=== PATIENT | female | born 1995 | race Caucasian/White ===

== ENCOUNTER 2021-10-04 17:31 | Emergency (ER) | payer OTHER ==
[2021-10-04 18:32] LABS: BASOPHILS % (AUTO) 0.2 %; EOSINOPHILS % (AUTO) 0.1 %; HCT - HEMATOCRIT 40.6 % (37.0-47.0); HGB - HEMOGLOBIN 13.5 g/dL (12.0-16.0); LYMPHOCYTES # (AUTO) 1.1 10^3/uL (1.5-3.5); LYMPHOCYTES % (AUTO) 10.4 %; MEAN CORPUSCULAR HEMOGLOBIN 31.4 pg (27.0-31.0); MEAN CORPUSCULAR HGB CONC 33.3 g/dL (32.0-36.0); MEAN CORPUSCULAR VOLUME 94.4 fL (81.0-99.0); MEAN PLATELET VOLUME 10.6 fL (7.9-10.8); MONOCYTES # (AUTO) 0.2 10^3/uL (0.0-1.0); MONOCYTES % (AUTO) 1.5 %; NEUTROPHILS # (AUTO) 8.9 10^3/uL (1.5-6.6); NEUTROPHILS % (AUTO) 87.4 %; PLT - PLATELET COUNT 260 10^3/uL (130-450); RED CELL DISTRIBUTION WIDTH 12.6 % (12.0-15.0); WHITE BLOOD COUNT 10.2 x10^3/uL (4.8-10.8)
[2021-10-04 18:45] LABS: ALBUMIN 4.5 g/dL (3.2-5.5); ALBUMIN/GLOBULIN RATIO 1.3 (1.0-2.2); BILIRUBIN,TOTAL 0.8 mg/dL (0.2-1.0); CALCIUM 9.5 mg/dL (8.5-10.3); CREATININE 0.9 mg/dL (0.4-1.0); POTASSIUM 3.6 mmol/L (3.5-5.0); TOTAL PROTEIN 7.9 g/dL (6.7-8.2)
[2021-10-04] MEDS ORDERED: KETOROLAC 30 MG/ML VIAL IVP STA (19:30)
[2021-10-04] MEDS ORDERED: SODIUM CHLORIDE 0.9% 1,000 ML IV STA (19:30)
[2021-10-04] MEDS ORDERED: ONDANSETRON 4 MG/2 ML VIAL IVP STA (19:30)
--- NOTE | 2021-10-04 19:31 | ED Physician Documentation ---
PD HPI ABD PAIN - Stated complaint Stated Complaint: VOMITTING - Chief complaint Chief Complaint: Abd Pain - History obtained from History obtained from: Patient - Additional information Additional information: She became progressively ill around noon today with stomach pain which is generalized and vomiting. No recent travel, no diarrhea, no fevers. No sick contacts or suspect foods. No history of abdominal surgeries. Review of Systems Ten Systems: 10 systems reviewed and negative Constitutional: reports: Reviewed and negative Eyes: reports: Reviewed and negative Ears: reports: Reviewed and negative Cardiac: reports: Reviewed and negative Respiratory: reports: Reviewed and negative PD PAST MEDICAL HISTORY - Allergies Allergies/Adverse Reactions: Allergies Allergy/AdvReac Type Severity Reaction Status Date / Time No Known Drug Allergies Allergy Verified 10/04/21 18:08 PD ED PE NORMAL - Vitals Vital signs reviewed: Yes - General General: Alert and oriented X 3, No acute distress - HEENT HEENT: PERRL, EOMI - Neck Neck: Supple, no meningeal sign, No bony TTP - Cardiac Cardiac: RRR, No murmur - Respiratory Respiratory: No respiratory distress, Clear bilaterally - Abdomen Abdomen: Normal bowel sounds, Soft, Other (She is tender to the low and right side of the abdomen most focally in the right lower quadrant without guarding or rebound.) - Back Back: No CVA TTP, No spinal TTP - Derm Derm: Normal color, Warm and dry - Extremities Extremities: No edema, No calf tenderness / cord - Neuro Neuro: Alert and oriented X 3, Normal speech Results - Vitals Vitals: Vital Signs - 24 hr 10/04/21 10/04/21 10/04/21 18:04 19:44 21:30 Temperature 37.1 C Heart Rate 75 71 85 Respiratory 20 19 19 Rate Blood Pressure 149/95 H 117/79 120/73 O2 Saturation 99 98 98 Oxygen O2 Source Room air - Labs Labs: Laboratory Tests 10/04/21 10/04/21 10/04/21 18:00 18:29 18:29 WBC 10.2 RBC 4.30 Hgb 13.5 Hct 40.6 MCV 94.4 MCH 31.4 H MCHC 33.3 RDW 12.6 Plt Count 260 MPV 10.6 Neut # (Auto) 8.9 H Lymph # (Auto) 1.1 L [place] # (Auto) 0.2 Eos # (Auto) 0.0 Baso # (Auto) 0.0 Absolute Nucleated RBC 0.00 Nucleated RBC % 0.0 Sodium 139 Potassium 3.6 Chloride 100 L Carbon Dioxide 27 Anion Gap 12.0 BUN 15 Creatinine 0.9 Estimated GFR (MDRD) 77 L Glucose 112 H Calcium 9.5 Total Bilirubin 0.8 AST 16 ALT 13 Alkaline Phosphatase 72 Total Protein 7.9 Albumin 4.5 Globulin 3.4 Albumin/Globulin Ratio 1.3 Lipase 26 Urine Color YELLOW Urine Clarity HAZY Urine pH 7.5 Ur Specific [place] 1.020 Urine Protein NEGATIVE Urine Glucose (UA) NEGATIVE Urine Ketones >=80 H Urine Occult Blood NEGATIVE Urine Nitrite NEGATIVE Urine Bilirubin NEGATIVE Urine Urobilinogen 0.2 (NORMAL) Ur Leukocyte Esterase NEGATIVE Urine RBC None Seen Urine WBC 4-5 Ur Squamous Epith Cells RARE Squamous Amorphous Sediment Rare Urine Bacteria Rare Urine Mucus Few Strands Ur Microscopic Review INDICATED Urine Culture Comments NOT INDICATED PD MEDICAL DECISION MAKING - ED course ED course: 26-year-old woman presents with abdominal pain associated with vomiting. No diarrhea to suggest gastroenteritis and she is tender in the low abdomen. Initial thought was for appendicitis. She has a borderline white count. Negative test. After initial round of pain and nausea medicines she was still quite miserable and writhing in pain, appears more comfortable after a second dose of pain medications. Signed out to overnight ED physician pending CT read. My wet read of this shows a large left ovarian cyst. Do not see any evidence of appendicitis but again the formal read is pending.
[2021-10-04 20:30] LABS: BILIRUBIN,URINE NEGATIVE (NEGATIVE); GLUCOSE, URINE (UA) NEGATIVE (NEGATIVE); KETONES,URINE (UA) >=80 mg/dL (NEGATIVE); LEUKOCYTE ESTERASE, URINE NEGATIVE (NEGATIVE); NITRITE,URINE NEGATIVE (NEGATIVE); OCCULT BLOOD,URINE NEGATIVE (NEGATIVE); PH,URINE 7.5 PH (5.0-7.5); PROTEIN,URINE NEGATIVE (NEGATIVE); UROBILINOGEN,URINE 0.2 (NORMAL) E.U./dL (NORMAL)
[2021-10-04 20:41] LABS: CLARITY,URINE HAZY (CLEAR)
[2021-10-04 20:42] LABS: AMORPHOUS SEDIMENT,UR Rare /LPF; BACTERIA,URINE Rare /HPF (None Seen); MUCUS,URINE Few Strands; RBC,URINE None Seen /HPF (0-5); SQUAMOUS EPITHELIAL CELL,UR RARE Squamous (<= Few)
[2021-10-04] MEDS ORDERED: IOVERSOL 320 100 ML VIAL IVP ONE ×2 (20:47→21:16)
[2021-10-04] MEDS ORDERED: METOCLOPRAMIDE 10 MG/2 ML VIAL IVP STA (21:23)
[2021-10-04] MEDS ORDERED: HYDROmorphone 1 MG/ML CARPUJECT IVP STA (21:23)
--- NOTE | 2021-10-04 22:10 | CT Report ---
PROCEDURE: Abdomen/Pelvis W INDICATIONS: IV only, RLQ pain CONTRAST: IV CONTRAST: Optiray 320 ml: 100 PO CONTRAST: *NO PO CONTRAST TECHNIQUE: After the administration of evaluation of the descending thoracic aorta is degraded by artifact and c annot be evaluated... contrast, 5 mm thick sections acquired from the diaphragms to the symphysis. 5 mm thick coronal and sagittal reformats were acquired. For radiation dose reduction, the following was used: automated exposure control, adjustment of mA and/or kV according to patient size. COMPARISON: None. FINDINGS: Image quality: Excellent. ABDOMEN: Lung bases: Lung bases are clear. Heart size is normal. Solid organs: Liver and spleen are normal in size and enhancement. Gallbladder is within normal morales its Biliary system is non dilated. Pancreas enhances normally. No adrenal nodules. Kidneys demons trate normal size and enhancement, without hydronephrosis. Peritoneum and bowel: Bowel loops demonstrate normal wall thickness and caliber. No free air. Small free fluid in the cul-de-sac of the pelvis. Appendix is normal. Nodes and vessels: No retroperitoneal or mesenteric adenopathy by size criteria. Aorta and inferior vena cava are normal in size. Miscellaneous: No ventral hernias. PELVIS: Genitourinary: Bladder wall thickness is normal. 4.5 cm left adnexal region cyst. Intrauterine alexis ce centrally positioned within the uterus. Miscellaneous: No inguinal hernias or adenopathy. Bones: No suspicious bony lesions. No vertebral body compression fractures. IMPRESSION: 1. Appendix is normal. 2. Small amount of free fluid in the cul-de-sac the pelvis which is within physiologic limits. 3. No dilated loops 4. 4.5 cm left adnexal region cyst. There is clinical concern for ovarian pathology, pelvic ultrasoun d should be considered for further evaluation. Reviewed by: Estella Moore MD, PhD on 10/04/2021 10:09 PM PST Approved by: Estella Moore MD, PhD on 10/04/2021 10:09 PM PST Station ID: [id number]
[2021-10-04 22:56] LABS: HCG UR QUAL NEGATIVE
--- NOTE | 2021-10-04 23:31 | ED Physician Documentation ---
ED Addendum - Addendum Addendum: 10/04/21 23:28 Patient endorsed me by Dr. Chapin pending CT a/p read. CT showed no ap pendicitis. There is a L ovarian cyst. Follow up u/s of the pelvis showed good flow to both ovaries and some BL adnexal fluid. Possible cyst rupture. Patient continues to have improvement so I will discharge home to f/u with agricultural equipment salesperson. return precautions given. Disposition home Condition good Impression 1. abdominal pain 2. ovarian cyst
[2021-10-04 23:55] VITALS: BP 107/86
--- NOTE | 2021-10-05 00:07 | Ultrasound Report ---
PROCEDURE: Pelvic Complete INDICATIONS: RLQ pain, sudden onset today TECHNIQUE: Real-time transabdominal scanning was performed of the pelvic organs, with image documentation. COMPARISON: None FINDINGS: Limited examination secondary to body habitus. Uterus: Uterus is normal in size at 7.2 x 4.4 x 4.6 cm. Endometrium measures 4.5 mm in combined thi ckness. IUD is grossly unremarkable Ovaries: Right ovary is grossly unremarkable with intact arterial and venous flow. 40 mm diameter in termediate echogenicity focus within the left ovary. Intact arterial and venous flow within the left ovary. Other: Small amount of free fluid within the pelvis, within physiological limits in a demonstrating f emale. IMPRESSION: 1. IUD is in expected location. 2. Probable hemorrhagic cyst within the left ovary. 3. No evidence of torsion at the time of the examination. Reviewed by: Jb Lopez MD on 10/05/2021 12:06 AM PST Approved by: Jb Lopez MD on 10/05/2021 12:06 AM PST Station ID: [id number]
== END 2021-10-05 00:30 | disposition home or self-care (01) ==
LOC: ED 17:31
DX: N83.202 Unspecified ovarian cyst, left side (principal); R10.9 Unspecified abdominal pain
CPT/HCPCS: 36415; 74177; 76856; 80053; 81001; 81025; 83690; 85025; 96374; 96375; 99283; 99285; J1170; J2765; Q9967; 81003; 87086

== ENCOUNTER 2021-10-19 19:07 | Emergency (ER) | payer OTHER ==
--- NOTE | 2021-10-19 19:35 | ED Physician Documentation ---
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 She was seen here 2 weeks ago, work-up demonstrated a left ovarian cyst but I suspect that is not related since she has upper abdominal pain and no pelvic pain. She was given medications which were quite helpful in cluding Dilaudid Toradol Reglan and Zofran. She had a CT and ultrasound on that date. She is never seen a specialist nor had an upper endoscopy. She states this happens multiple times a year. No associated diarrhea or change in bowel movements. No surgical history. She says she does not use marijuana. Review of Systems Ten Systems: 10 systems reviewed and negative Constitutional: reports: Sweats GI: reports: Abdominal Pain, Nausea, Vomiting. 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 HEENT: None Psych: None Musculoskeletal: None Derm: None - Past Surgical History Past Surgical History: No - Present Medications Home Medications: Ambulatory Orders Medication Instructions Recorded Confirmed Ondansetron Odt [Zofran] 4 mg TL Q6H PRN #10 tablet 10/19/21 - Allergies Allergies/Adverse Reactions: Allergies Allergy/AdvReac Type Severity Reaction Status Date / Time No Known Drug Allergies Allergy Verified 10/19/21 19:14 - Social History Does the pt smoke?: No Smoking Status: Never smoker Does the pt drink ETOH?: No Does the pt have substance abuse?: No - Immunizations Immunizations are current?: Yes PD ED PE NORMAL - Vitals Vital signs reviewed: Yes - General General: Alert and oriented X 3, Other (She appears uncomfortable without active retching) - Cardiac Cardiac: RRR, No murmur - Respiratory Respiratory: No respiratory distress, Clear bilaterally - Abdomen Abdomen: Normal bowel sounds, Soft, Other (Mild upper abdominal tenderness without surgical signs, no pelvic tenderness.) - Derm Derm: Normal color, Warm and dry - Extremities Extremities: Other (Well-healed scars on the anterior left forearm consistent with self cutting, none recent.) - Neuro Neuro: Alert and oriented X 3, Normal speech Results - Vitals Vitals: Vital Signs - 24 hr 10/19/21 10/19/21 10/19/21 19:14 19:20 21:16 Temperature 36.9 C Heart Rate 90 88 85 Respiratory 18 16 16 Rate Blood Pressure 133/86 H 143/94 H 138/75 H O2 Saturation 100 98 98 Oxygen O2 Source Room air - Labs Labs: Laboratory Tests 10/19/21 10/19/21 10/19/21 19:36 19:36 20:23 WBC 13.8 H RBC 4.35 Hgb 13.9 Hct 40.0 MCV 92.0 MCH 32.0 H MCHC 34.8 RDW 12.4 Plt Count 291 MPV 10.7 Neut # (Auto) 12.2 H Lymph # (Auto) 1.2 L [place] # (Auto) 0.3 Eos # (Auto) 0.0 Baso # (Auto) 0.0 Absolute Nucleated RBC 0.00 Nucleated RBC % 0.0 Sodium 139 Potassium 3.6 Chloride 100 L Carbon Dioxide 25 Anion Gap 14.0 H BUN 13 Creatinine 0.9 Estimated GFR (MDRD) 77 L Glucose 125 H Calcium 10.0 Total Bilirubin 1.1 H AST 15 ALT 13 Alkaline Phosphatase 74 Total Protein 8.3 H Albumin 4.8 Globulin 3.5 Albumin/Globulin Ratio 1.4 Lipase 22 Urine Color YELLOW Urine Clarity CLEAR Urine pH >=9.0 H Ur Specific [place] 1.015 Urine Protein 30 H Urine Glucose (UA) NEGATIVE Urine Ketones >=80 H Urine Occult Blood NEGATIVE Urine Nitrite NEGATIVE Urine Bilirubin NEGATIVE Urine Urobilinogen 0.2 (NORMAL) Ur Leukocyte Esterase NEGATIVE Urine RBC None Seen Urine WBC 0-3 Ur Squamous Epith Cells RARE Squamous Amorphous Sediment Rare Urine Bacteria Few Urine Mucus Few Strands Ur Microscopic Review INDICATED Urine Culture Comments NOT INDICATED Urine HCG, Qual NEGATIVE Urine Opiates Screen NEGATIVE Ur Oxycodone Screen NEGATIVE Urine Methadone Screen NEGATIVE Ur Propoxyphene Screen NEGATIVE Ur Barbiturates Screen NEGATIVE Ur Tricyclics Screen NEGATIVE Ur Phencyclidine Scrn NEGATIVE Ur Amphetamine Screen NEGATIVE U Methamphetamines Scrn NEGATIVE U Benzodiazepines Scrn NEGATIVE Urine Cocaine Screen NEGATIVE U Cannabinoids Screen NEGATIVE PD MEDICAL DECISION MAKING - ED course ED course: 26-year-old woman with episodes of recurrent vomiting of unclear pathology. Pain was much better after Toradol and Reglan but still having some nausea. This was followed with IV fluids and 2.5 mg of droperidol after which she was quite sedated. Departure - Departure Clinical Impression: Recurrent vomiting Condition: Good Record reviewed to determine appropriate education?: Yes Instructions: ED Nausea Vomiting Prescriptions: Ondansetron Odt [Zofran] 4 mg TL Q6H PRN #10 tablet PRN Reason: Nausea / Vomiting Comments: [place] for [place]enterology, with consideration for EGD. Still need to follow-up with AUTOMATIC EMBROIDERY MACHINE TENDER for repeat ultrasonography in a few weeks for recheck of the ovarian cyst seen on prior visit.
[2021-10-19] MEDS ORDERED: METOCLOPRAMIDE 10 MG/2 ML VIAL IVP STA (19:36)
[2021-10-19] MEDS ORDERED: KETOROLAC 30 MG/ML VIAL IVP STA (19:36)
[2021-10-19 19:38] LABS: BASOPHILS % (AUTO) 0.2 %; EOSINOPHILS % (AUTO) 0.1 %; HGB - HEMOGLOBIN 13.9 g/dL (12.0-16.0); LYMPHOCYTES # (AUTO) 1.2 10^3/uL (1.5-3.5); LYMPHOCYTES % (AUTO) 8.6 %; MEAN CORPUSCULAR HGB CONC 34.8 g/dL (32.0-36.0); MEAN PLATELET VOLUME 10.7 fL (7.9-10.8); MONOCYTES # (AUTO) 0.3 10^3/uL (0.0-1.0); MONOCYTES % (AUTO) 2.3 %; NEUTROPHILS # (AUTO) 12.2 10^3/uL (1.5-6.6); NEUTROPHILS % (AUTO) 88.5 %; PLT - PLATELET COUNT 291 10^3/uL (130-450); RED BLOOD COUNT 4.35 10^6/uL (4.20-5.40); RED CELL DISTRIBUTION WIDTH 12.4 % (12.0-15.0); WHITE BLOOD COUNT 13.8 x10^3/uL (4.8-10.8)
[2021-10-19 19:57] LABS: ALBUMIN 4.8 g/dL (3.2-5.5); ALBUMIN/GLOBULIN RATIO 1.4 (1.0-2.2); BILIRUBIN,TOTAL 1.1 mg/dL (0.2-1.0); CREATININE 0.9 mg/dL (0.4-1.0); POTASSIUM 3.6 mmol/L (3.5-5.0); TOTAL PROTEIN 8.3 g/dL (6.7-8.2)
[2021-10-19 20:31] LABS: BILIRUBIN,URINE NEGATIVE (NEGATIVE); GLUCOSE, URINE (UA) NEGATIVE (NEGATIVE); KETONES,URINE (UA) >=80 mg/dL (NEGATIVE); LEUKOCYTE ESTERASE, URINE NEGATIVE (NEGATIVE); MUDS CUTOFF CONCENTRATIONS CUTOFF CONC BELOW:; NITRITE,URINE NEGATIVE (NEGATIVE); OCCULT BLOOD,URINE NEGATIVE (NEGATIVE); PH,URINE >=9.0 PH (5.0-7.5); PROTEIN,URINE 30 mg/dL (NEGATIVE); UROBILINOGEN,URINE 0.2 (NORMAL) E.U./dL (NORMAL)
[2021-10-19 20:35] LABS: CLARITY,URINE CLEAR (CLEAR); HCG UR QUAL NEGATIVE
[2021-10-19 20:41] LABS: AMORPHOUS SEDIMENT,UR Rare /LPF; BACTERIA,URINE Few /HPF (None Seen); MUCUS,URINE Few Strands; RBC,URINE None Seen /HPF (0-5); SQUAMOUS EPITHELIAL CELL,UR RARE Squamous (<= Few); WBC,URINE 0-3 /HPF (0-5)
[2021-10-19 20:42] LABS: AMPHETAMINE SCREEN,URINE NEGATIVE (NEGATIVE); BARBITURATE SCREEN,UR NEGATIVE (NEGATIVE); BENZODIAZEPINES SCREEN, URINE NEGATIVE (NEGATIVE); COCAINE SCREEN URINE NEGATIVE (NEGATIVE); METHADONE SCREEN, URINE NEGATIVE (NEGATIVE); METHAMPHETAMINES SCREEN, URINE NEGATIVE (NEGATIVE); OPIATE SCREEN, URINE NEGATIVE (NEGATIVE); OXYCODONE SCREEN, URINE NEGATIVE (NEGATIVE); PROPOXYPHENE SCREEN, URINE NEGATIVE (NEGATIVE); THC CANNABINOID SCREEN, URINE NEGATIVE (NEGATIVE); TRICYCLIC ANTIDEPRESSANT,URINE NEGATIVE (NEGATIVE)
[2021-10-19] MEDS ORDERED: SODIUM CHLORIDE 0.9% 1,000 ML IV STA (20:44)
[2021-10-19] MEDS ORDERED: DROPERIDOL 5 MG/2 ML VIAL IVP STA (20:44)
[2021-10-19 22:48] VITALS: BP 99/56
== END 2021-10-19 22:58 | disposition home or self-care (01) ==
LOC: ED 19:07
DX: R11.2 Nausea with vomiting, unspecified (principal); R10.10 Upper abdominal pain, unspecified
CPT/HCPCS: 36415; 80053; 80306; 81001; 81025; 83690; 85025; 96374; 96375; 99283; J2765; 81003; 87086

== ENCOUNTER 2021-11-14 14:27 | Emergency (ER) | payer OTHER ==
[2021-11-14 15:01] LABS: BASOPHILS % (AUTO) 0.3 %; EOSINOPHILS % (AUTO) 0.2 %; HCT - HEMATOCRIT 42.7 % (37.0-47.0); HGB - HEMOGLOBIN 14.9 g/dL (12.0-16.0); LYMPHOCYTES # (AUTO) 1.6 10^3/uL (1.5-3.5); LYMPHOCYTES % (AUTO) 12.4 %; MEAN CORPUSCULAR HEMOGLOBIN 32.3 pg (27.0-31.0); MEAN CORPUSCULAR HGB CONC 34.9 g/dL (32.0-36.0); MEAN CORPUSCULAR VOLUME 92.6 fL (81.0-99.0); MEAN PLATELET VOLUME 10.5 fL (7.9-10.8); MONOCYTES # (AUTO) 0.3 10^3/uL (0.0-1.0); MONOCYTES % (AUTO) 2.5 %; NEUTROPHILS % (AUTO) 84.4 %; PLT - PLATELET COUNT 272 10^3/uL (130-450); RED BLOOD COUNT 4.61 10^6/uL (4.20-5.40)
[2021-11-14] MEDS ORDERED: KETOROLAC 15 MG/ML VIAL IVP STA (15:03)
[2021-11-14] MEDS ORDERED: SODIUM CHLORIDE 0.9% 1,000 ML IV STA ×2 (15:03→15:47)
[2021-11-14] MEDS ORDERED: DROPERIDOL 5 MG/2 ML VIAL IVP STA (15:03)
--- NOTE | 2021-11-14 15:05 | ED Physician Documentation ---
PD HPI ABD PAIN - Stated complaint Stated Complaint: VOMITTING - Chief complaint Chief Complaint: Abd Pain - History obtained from History obtained from: Patient - Additional information Additional information: 26-year-old woman with recurrent bouts of abdominal pain and vomiting of unclear etiology. They started at age 16. They happen every few months. She does not use marijuana. No history of abdominal surgeries. Previous testing was inconclusive but has had ovarian cyst in the past. Current flare started 2 days ago with central abdominal pain and vomiting but no diarrhea. She has had f airly normal bowel movements. 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 : None HEENT: None Psych: None Musculoskeletal: None Derm: None - Past Surgical History Past Surgical History: No - Present Medications Home Medications: Ambulatory Orders Medication Instructions Recorded Confirmed Ondansetron Odt [Zofran] 4 mg TL Q6H PRN #10 tablet 10/19/21 Amitriptyline [Elavil] 25 mg PO HS #30 tablet 11/14/21 - Allergies Allergies/Adverse Reactions: Allergies Allergy/AdvReac Type Severity Reaction Status Date / Time No Known Drug Allergies Allergy Verified 11/14/21 14:46 - Social History Does the pt smoke?: No Smoking Status: Never smoker Does the pt drink ETOH?: No Does the pt have substance abuse?: No - Immunizations Immunizations are current?: Yes PD ED PE NORMAL - Vitals Vital signs reviewed: Yes - General General: Alert and oriented X 3 - HEENT HEENT: PERRL - Neck Neck: Supple, no meningeal sign - Cardiac Cardiac: RRR, No murmur - Respiratory Respiratory: No respiratory distress, Clear bilaterally - Abdomen Abdomen: Other (She appears uncomfortable, she does have mild upper abdominal tenderness without surgical signs.) - Back Back: No CVA TTP, No spinal TTP - Derm Derm: Normal color, Warm and dry - Extremities Extremities: No edema, No calf tenderness / cord - Neuro Neuro: Alert and oriented X 3, Normal speech Results - Vitals Vitals: Vital Signs - 24 hr 11/14/21 11/14/21 11/14/21 14:42 15:52 16:37 Temperature 36.6 C Heart Rate 70 69 68 Respiratory 18 17 12 Rate Blood Pressure 136/86 H 133/99 H 108/60 O2 Saturation 98 96 97 11/14/21 17:06 Temperature Heart Rate 62 Respiratory 12 Rate Blood Pressure 122/68 O2 Saturation 99 Oxygen O2 Source Room air - Labs Labs: Laboratory Tests 11/14/21 11/14/21 11/14/21 14:55 14:55 14:57 WBC 13.0 H RBC 4.61 Hgb 14.9 Hct 42.7 MCV 92.6 MCH 32.3 H MCHC 34.9 RDW 12.0 Plt Count 272 MPV 10.5 Neut # (Auto) 11.0 H Lymph # (Auto) 1.6 [place] # (Auto) 0.3 Eos # (Auto) 0.0 Baso # (Auto) 0.0 Absolute Nucleated RBC 0.00 Nucleated RBC % 0.0 Sodium 135 Potassium 3.1 L Chloride 95 L Carbon Dioxide 25 Anion Gap 15.0 H BUN 16 Creatinine 1.0 Estimated GFR (MDRD) 68 L Glucose 115 H Calcium 9.6 Total Bilirubin 0.9 AST 16 ALT 12 Alkaline Phosphatase 77 Total Protein 8.5 H Albumin 5.0 Globulin 3.5 Albumin/Globulin Ratio 1.4 Lipase 28 HCG, Quant 1.85 PD MEDICAL DECISION MAKING - ED course ED course: 26-year-old woman with episodic vomiting and abdominal pain. She is not a marijuana user. Here has a normal and benign exam. After the IV fluids, Toradol, droperidol and Dilaudid she was feeling much better and passed an oral challenge and remained nontender on recheck. I do wonder if she might have cyclic vomiting syndrome, she does fit the criteria although has never seen a GI doctor. We discussed this and it seems reasonable to trial amitriptyline pending follow-up with her physician and hopefully a GI referral. Departure - Departure Disposition: 01 Home, Self Care Clinical Impression: Recurrent vomiting Abdominal pain Qualifiers: Abdominal location: generalized Qualified Code(s): R10.84 - Generalized abdominal pain Condition: Good Record reviewed to determine appropriate education?: Yes Instructions: ED Nausea Vomiting Prescriptions: Amitriptyline [Elavil] 25 mg PO HS #30 tablet Comments: As discussed, I wonder if you might have cyclic vomiting syndrome. I am starting amitriptyline for this which is a preventative medication. I am starting it at basically a very low dose which you might need to have a higher dose to get an effective response. [place] to [place] for evaluation. Return for new or worsening symptoms.
[2021-11-14 15:11] LABS: ALBUMIN/GLOBULIN RATIO 1.4 (1.0-2.2); BILIRUBIN,TOTAL 0.9 mg/dL (0.2-1.0); CALCIUM 9.6 mg/dL (8.5-10.3); POTASSIUM 3.1 mmol/L (3.5-5.0); TOTAL PROTEIN 8.5 g/dL (6.7-8.2)
[2021-11-14] MEDS ORDERED: HYDROmorphone 1 MG/ML CARPUJECT IVP STA (15:47)
[2021-11-14 17:07] VITALS: BP 122/68
[2021-11-14] MEDS ORDERED: POTASSIUM CHLORIDE 20 MEQ TABLET PO STA (17:32)
== END 2021-11-14 17:50 | disposition home or self-care (01) ==
LOC: ED 14:27
DX: R10.84 Generalized abdominal pain (principal); R11.10 Vomiting, unspecified
CPT/HCPCS: 36415; 80053; 83690; 84702; 85025; 96361; 96374; 96375; 99283; A9270; J1170

== ENCOUNTER 2021-12-29 09:18 | Emergency (ER) | payer OTHER ==
--- NOTE | 2021-12-29 09:30 | ED Physician Documentation ---
PD HPI NVD - Stated complaint Stated Complaint: VOMITTING - History obtained from History obtained from: Patient - History of Present Illness Timing - onset: Today Timing - duration: Hours Timing - details: Abrupt onset, Still present Associated symptoms: Abdominal pain Contributing factors: Alcohol use. No: Sick contact Improved by: Vomiting Similar symptoms before: Diagnosis (cyclical vomiting) Recently seen: Not recently seen - Additonal information Additional information: 26-year-old female with a history of cyclical vomiting syndrome has developed nausea and vomiting beginning yesterday evening after excessive alcohol ingestion. She has had multiple episodes previously and does not do cannabis. She has not seen GI. She has had some SI previously and she denies current thoughts. 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 : None HEENT: None Psych: None Musculoskeletal: None Derm: None - Past Surgical History Past Surgical History: No - Present Medications Home Medications: Ambulatory Orders Medication Instructions Recorded Confirmed Prochlorperazine Maleate 10 mg PO Q4HR PRN #14 tab 12/29/21 [Compazine] Sertraline [Zoloft] 50 mg PO DAILY 12/29/21 12/29/21 - Allergies Allergies/Adverse Reactions: Allergies Allergy/AdvReac Type Severity Reaction Status Date / Time No Known Drug Allergies Allergy Verified 12/29/21 09:33 - Social History Does the pt smoke?: No Smoking Status: Never smoker Does the pt drink ETOH?: No Does the pt have substance abuse?: No - Immunizations Immunizations are current?: Yes PD ED PE NORMAL - Vitals Vital signs reviewed: Yes (hypertensive) - General General: Alert and oriented X 3, Well developed/nourished, Other (prefers eyes closed ) - HEENT HEENT: Atraumatic, PERRL, EOMI - Neck Neck: Supple, no meningeal sign, No bony TTP - Cardiac Cardiac: RRR, No murmur - Respiratory Respiratory: No respiratory distress, Clear bilaterally - Abdomen Abdomen: Normal bowel sounds, Soft, Non distended, No organomegaly, Other (epigastric tenderness is mild but present) - Back Back: No CVA TTP, No spinal TTP - Derm Derm: Normal color, Warm and dry, No rash - Extremities Extremities: No deformity, No edema - Neuro Neuro: Alert and oriented X 3, dress finisher 2-12 intact, No motor deficit, No sensory deficit, Normal speech Eye Opening: To Voice Motor: Obeys Commands Verbal: Oriented GCS Score: 14 - Psych Psych: Normal mood, Normal affect Results - Vitals Vitals: Vital Signs - 24 hr 12/29/21 12/29/21 12/29/21 09:27 11:33 12:30 Temperature 36.1 C L Heart Rate 84 90 91 Respiratory 16 12 Rate Blood Pressure 149/81 H 130/82 H 124/75 O2 Saturation 99 96 94 Oxygen O2 Source Room air - Labs Labs: Laboratory Tests 12/29/21 12/29/21 12/29/21 09:30 09:30 09:30 WBC 16.7 H RBC 4.47 Hgb 14.7 Hct 41.4 MCV 92.6 MCH 32.9 H MCHC 35.5 RDW 11.9 L Plt Count 312 MPV 10.7 Neut # (Auto) 15.0 H Lymph # (Auto) 1.3 L [place] # (Auto) 0.3 Eos # (Auto) 0.0 Baso # (Auto) 0.0 Absolute Nucleated RBC 0.00 Nucleated RBC % 0.0 Sodium 139 Potassium 3.3 L Chloride 102 Carbon Dioxide 22 Anion Gap 15.0 H BUN 7 Creatinine 0.8 Estimated GFR (MDRD) 88 L Glucose 136 H Calcium 9.5 Total Bilirubin 0.6 AST 17 ALT 11 Alkaline Phosphatase 76 Total Protein 7.8 Albumin 4.6 Globulin 3.2 Albumin/Globulin Ratio 1.4 Lipase 27 Urine Color Urine Clarity Urine pH Ur Specific [place] Urine Protein Urine Glucose (UA) Urine Ketones Urine Occult Blood Urine Nitrite Urine Bilirubin Urine Urobilinogen Ur Leukocyte Esterase Ur Microscopic Review Urine Culture Comments Urine HCG, Qual Urine Opiates Screen Ur Oxycodone Screen Urine Methadone Screen Ur Propoxyphene Screen Ur Barbiturates Screen Ur Tricyclics Screen Ur Phencyclidine Scrn Ur Amphetamine Screen U Methamphetamines Scrn U Benzodiazepines Scrn Urine Cocaine Screen U Cannabinoids Screen Ethyl Alcohol < 5.0 12/29/21 12/29/21 11:47 11:47 WBC RBC Hgb Hct MCV MCH MCHC RDW Plt Count MPV Neut # (Auto) Lymph # (Auto) [place] # (Auto) Eos # (Auto) Baso # (Auto) Absolute Nucleated RBC Nucleated RBC % Sodium Potassium Chloride Carbon Dioxide Anion Gap BUN Creatinine Estimated GFR (MDRD) Glucose Calcium Total Bilirubin AST ALT Alkaline Phosphatase Total Protein Albumin Globulin Albumin/Globulin Ratio Lipase Urine Color YELLOW Urine Clarity CLEAR Urine pH 8.5 H Ur Specific [place] 1.015 Urine Protein NEGATIVE Urine Glucose (UA) NEGATIVE Urine Ketones 15 H Urine Occult Blood TRACE-INTA Urine Nitrite NEGATIVE Urine Bilirubin NEGATIVE Urine Urobilinogen 0.2 (NORMAL) Ur Leukocyte Esterase NEGATIVE Ur Microscopic Review NOT INDICATED Urine Culture Comments NOT INDICATED Urine HCG, Qual NEGATIVE Urine Opiates Screen POSITIVE H Ur Oxycodone Screen NEGATIVE Urine Methadone Screen NEGATIVE Ur Propoxyphene Screen NEGATIVE Ur Barbiturates Screen NEGATIVE Ur Tricyclics Screen NEGATIVE Ur Phencyclidine Scrn NEGATIVE Ur Amphetamine Screen NEGATIVE U Methamphetamines Scrn NEGATIVE U Benzodiazepines Scrn NEGATIVE Urine Cocaine Screen NEGATIVE U Cannabinoids Screen NEGATIVE Ethyl Alcohol PD MEDICAL DECISION MAKING - ED course Complexity details: reviewed results, re-evaluated patient, considered differential, d/w patient ED course: 26-year-old female the history of cyclical vomiting has developed symptoms again and this is after significant alcohol intake the evening prior. She has vomiting and abdominal pain and states that in the past morphine is seem to help the most. She is administered morphine Compazine and Benadryl and has improvement in her symptoms. She is administered a second liter of saline when the first does not produce a ready urine specimen. She receives additional Compazine and morphine prior to discharge. Departure - Departure Disposition: 01 Home, Self Care Clinical Impression: Recurrent vomiting Instructions: ED Diet Vomiting Diarrhea Follow-Up: TODD Navarro [Provider Group] Prescriptions: Prochlorperazine Maleate [Compazine] 10 mg PO Q4HR PRN #14 tab PRN Reason: Nausea / Vomiting
[2021-12-29] MEDS ORDERED: ONDANSETRON ODT 4 MG TABLET TL STA (09:36)
[2021-12-29 09:46] LABS: BASOPHILS % (AUTO) 0.2 %; HCT - HEMATOCRIT 41.4 % (37.0-47.0); HGB - HEMOGLOBIN 14.7 g/dL (12.0-16.0); LYMPHOCYTES # (AUTO) 1.3 10^3/uL (1.5-3.5); LYMPHOCYTES % (AUTO) 7.6 %; MEAN CORPUSCULAR HEMOGLOBIN 32.9 pg (27.0-31.0); MEAN CORPUSCULAR HGB CONC 35.5 g/dL (32.0-36.0); MEAN CORPUSCULAR VOLUME 92.6 fL (81.0-99.0); MEAN PLATELET VOLUME 10.7 fL (7.9-10.8); MONOCYTES # (AUTO) 0.3 10^3/uL (0.0-1.0); MONOCYTES % (AUTO) 1.9 %; NEUTROPHILS % (AUTO) 89.9 %; PLT - PLATELET COUNT 312 10^3/uL (130-450); RED BLOOD COUNT 4.47 10^6/uL (4.20-5.40); RED CELL DISTRIBUTION WIDTH 11.9 % (12.0-15.0); WHITE BLOOD COUNT 16.7 x10^3/uL (4.8-10.8)
[2021-12-29 09:54] LABS: ALBUMIN 4.6 g/dL (3.2-5.5); ALBUMIN/GLOBULIN RATIO 1.4 (1.0-2.2); BILIRUBIN,TOTAL 0.6 mg/dL (0.2-1.0); CALCIUM 9.5 mg/dL (8.5-10.3); CREATININE 0.8 mg/dL (0.4-1.0); POTASSIUM 3.3 mmol/L (3.5-5.0); TOTAL PROTEIN 7.8 g/dL (6.7-8.2)
[2021-12-29] MEDS ORDERED: SODIUM CHLORIDE 0.9% 1,000 ML IV STA ×2 (10:00→11:36)
[2021-12-29] MEDS ORDERED: diphenhydrAMINE INJ 50 MG/ML VIAL IVP STA (10:00)
[2021-12-29] MEDS ORDERED: MORPHINE 2 MG/ML CARPUJECT IVP STA ×2 (10:00→12:35)
[2021-12-29] MEDS ORDERED: PROCHLORPERAZINE 10 MG/2 ML VIAL IVP STA ×2 (10:00→12:35)
[2021-12-29 11:55] LABS: BILIRUBIN,URINE NEGATIVE (NEGATIVE); GLUCOSE, URINE (UA) NEGATIVE (NEGATIVE); KETONES,URINE (UA) 15 mg/dL (NEGATIVE); LEUKOCYTE ESTERASE, URINE NEGATIVE (NEGATIVE); NITRITE,URINE NEGATIVE (NEGATIVE); OCCULT BLOOD,URINE TRACE-INTA (NEGATIVE); PH,URINE 8.5 PH (5.0-7.5); PROTEIN,URINE NEGATIVE (NEGATIVE); UROBILINOGEN,URINE 0.2 (NORMAL) E.U./dL (NORMAL)
[2021-12-29 11:58] LABS: CLARITY,URINE CLEAR (CLEAR); HCG UR QUAL NEGATIVE
[2021-12-29 12:15] LABS: MUDS CUTOFF CONCENTRATIONS CUTOFF CONC BELOW:
[2021-12-29 12:30] LABS: AMPHETAMINE SCREEN,URINE NEGATIVE (NEGATIVE); BARBITURATE SCREEN,UR NEGATIVE (NEGATIVE); BENZODIAZEPINES SCREEN, URINE NEGATIVE (NEGATIVE); COCAINE SCREEN URINE NEGATIVE (NEGATIVE); METHADONE SCREEN, URINE NEGATIVE (NEGATIVE); METHAMPHETAMINES SCREEN, URINE NEGATIVE (NEGATIVE); OPIATE SCREEN, URINE POSITIVE (NEGATIVE); OXYCODONE SCREEN, URINE NEGATIVE (NEGATIVE); PROPOXYPHENE SCREEN, URINE NEGATIVE (NEGATIVE); THC CANNABINOID SCREEN, URINE NEGATIVE (NEGATIVE); TRICYCLIC ANTIDEPRESSANT,URINE NEGATIVE (NEGATIVE)
[2021-12-29 12:55] VITALS: BP 124/75
== END 2021-12-29 13:14 | disposition home or self-care (01) ==
LOC: ED 09:18
DX: R11.15 Cyclical vomiting syndrome unrelated to migraine (principal)
CPT/HCPCS: 36415; 80053; 80306; 80320; 81003; 81025; 83690; 85025; 96361; 96374; 96375; 96376; 99282; 99284; J1200; Q0162; 81001; 87086

== ENCOUNTER 2022-04-29 17:44 | Emergency (ER) | payer OTHER ==
[2022-04-29] MEDS ORDERED: SODIUM CHLORIDE 0.9% 1,000 ML IV STA (18:14)
[2022-04-29] MEDS ORDERED: DROPERIDOL 5 MG/2 ML VIAL IVP STA (18:14)
--- NOTE | 2022-04-29 18:19 | ED Physician Documentation ---
History of Present Illness - Stated complaint Stated Complaint: VOMIT/ABD PX - Chief complaint Chief Complaint: Abd Pain - Additonal information Additional information: 26-year-old female presents emergency department for evaluation of uncontrolled nausea and vomiting. This is her third ED visit since 26 April. She has been seen multiple times in the ER for a cyclic vomiting syndrome at times thought to be due to cannabinoid hyperemesis though she is adamant she has not used for 7 years. This has been a recurrent ongoing problem for a number of years with multiple ED visits and no clear etiology found. She is managed by multiple antiemetics at home. She recently started her menstrual cycle. She does have an IUD in place She denies alcohol use. She has no hematic emesis or melena. She is generally uncomfortable in her abdomen though not focally tender. She is requesting to be admitted to the hospital for uncontrolled vomiting. Review of Systems Constitutional: denies: Fever, Chills Eyes: reports: Reviewed and negative Throat: reports: Reviewed and negative Cardiac: reports: Reviewed and negative Respiratory: reports: Reviewed and negative GI: reports: Abdominal Pain, Nausea, Vomiting. 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 HEENT: None Psych: None Musculoskeletal: None Derm: None - Past Surgical History Past Surgical History: No - Present Medications Home Medications: Ambulatory Orders Medication Instructions Recorded Confirmed Prochlorperazine Maleate 10 mg PO Q4HR PRN #14 tab 12/29/21 [Compazine] Sertraline [Zoloft] 50 mg PO DAILY 12/29/21 12/29/21 Amitriptyline [Elavil] 25 mg PO HS #30 tablet 04/29/22 - Allergies Allergies/Adverse Reactions: Allergies Allergy/AdvReac Type Severity Reaction Status Date / Time No Known Drug Allergies Allergy Verified 04/29/22 18:00 - Social History Does the pt smoke?: No Smoking Status: Never smoker Does the pt drink ETOH?: No Does the pt have substance abuse?: No - Immunizations Immunizations are current?: Yes PD ED PE NORMAL - General General: Alert and oriented X 3, No acute distress - HEENT HEENT: Atraumatic, PERRL - Neck Neck: Supple, no meningeal sign, No adenopathy - Cardiac Cardiac: RRR, No murmur - Respiratory Respiratory: No respiratory distress, Clear bilaterally - Abdomen Abdomen: Normal bowel sounds, Soft, Non tender (genralized tenderness; non focal) - Back Back: No CVA TTP, No spinal TTP - Derm Derm: Normal color, Warm and dry, No rash - Extremities Extremities: No deformity, No tenderness to palpate, Normal ROM s pain - Neuro Neuro: Alert and oriented X 3, java web developer 2-12 intact Eye Opening: Spontaneous Motor: Obeys Commands Verbal: Oriented GCS Score: 15 Results - Vitals Vitals: Vital Signs - 24 hr 04/29/22 04/29/22 17:59 20:00 Temperature 36.6 C Heart Rate 84 81 Respiratory 20 16 Rate Blood Pressure 132/96 H 126/77 O2 Saturation 100 99 Oxygen O2 Source Room air - Labs Labs: Laboratory Tests 04/29/22 04/29/22 04/29/22 18:19 18:19 18:40 WBC 13.4 H RBC 4.24 Hgb 13.7 Hct 39.1 MCV 92.2 MCH 32.3 H MCHC 35.0 RDW 11.9 L Plt Count 215 MPV 10.9 H Neut # (Auto) 11.8 H Lymph # (Auto) 1.2 L [place] # (Auto) 0.4 Eos # (Auto) 0.0 Baso # (Auto) 0.0 Absolute Nucleated RBC 0.00 Nucleated RBC % 0.0 Sodium Potassium Chloride Carbon Dioxide Anion Gap BUN Creatinine Estimated GFR (MDRD) Glucose Calcium Total Bilirubin AST ALT Alkaline Phosphatase Total Protein Albumin Globulin Albumin/Globulin Ratio Lipase Urine Color YELLOW Urine Clarity CLEAR Urine pH 8.5 H Ur Specific [place] 1.020 Urine Protein NEGATIVE Urine Glucose (UA) NEGATIVE Urine Ketones 40 H Urine Occult Blood NEGATIVE Urine Nitrite NEGATIVE Urine Bilirubin NEGATIVE Urine Urobilinogen 0.2 (NORMAL) Ur Leukocyte Esterase NEGATIVE Ur Microscopic Review NOT INDICATED Urine Culture Comments NOT INDICATED Urine HCG, Qual NEGATIVE Urine Opiates Screen NEGATIVE Ur Oxycodone Screen NEGATIVE Urine Methadone Screen NEGATIVE Ur Propoxyphene Screen NEGATIVE Ur Barbiturates Screen NEGATIVE Ur Tricyclics Screen NEGATIVE Ur Phencyclidine Scrn NEGATIVE Ur Amphetamine Screen NEGATIVE U Methamphetamines Scrn NEGATIVE U Benzodiazepines Scrn NEGATIVE Urine Cocaine Screen NEGATIVE U Cannabinoids Screen NEGATIVE 04/29/22 18:40 WBC RBC Hgb Hct MCV MCH MCHC RDW Plt Count MPV Neut # (Auto) Lymph # (Auto) [place] # (Auto) Eos # (Auto) Baso # (Auto) Absolute Nucleated RBC Nucleated RBC % Sodium 135 Potassium 2.8 L Chloride 100 L Carbon Dioxide 24 Anion Gap 11.0 BUN 12 Creatinine 0.9 Estimated GFR (MDRD) 77 L Glucose 105 H Calcium 9.3 Total Bilirubin 0.7 AST 17 ALT 13 Alkaline Phosphatase 59 Total Protein 8.0 Albumin 4.7 Globulin 3.3 Albumin/Globulin Ratio 1.4 Lipase 37 Urine Color Urine Clarity Urine pH Ur Specific [place] Urine Protein Urine Glucose (UA) Urine Ketones Urine Occult Blood Urine Nitrite Urine Bilirubin Urine Urobilinogen Ur Leukocyte Esterase Ur Microscopic Review Urine Culture Comments Urine HCG, Qual Urine Opiates Screen Ur Oxycodone Screen Urine Methadone Screen Ur Propoxyphene Screen Ur Barbiturates Screen Ur Tricyclics Screen Ur Phencyclidine Scrn Ur Amphetamine Screen U Methamphetamines Scrn U Benzodiazepines Scrn Urine Cocaine Screen U Cannabinoids Screen - Rads (name of study) CT abd Radiology: Final report received (Normal appendix. No bowel obstruction. No free fluid or free air. No abnormal bowel wall thickening. Mild constipation. Physiologic amount of fluid seen in lower pelvis. IUD seen.) PD MEDICAL DECISION MAKING - ED course Complexity details: reviewed old records, reviewed results, re-evaluated patient, considered differential, d/w patient ED course: 26-year-old female returns to the emergency department for evaluation of a cyclic vomiting syndrome. This is her third ED visit since 26 April. This has been a recurrent ongoing problem for a number of years with multiple ED visits and no clear etiology found. She is managed by multiple antiemetics at home. On presentation to the emergency department she was actively dry heaving and requesting to be admitted to the hospital. She reports that she has not used any cannabis for nearly 7 years. Her urine drug screen today is in fact negative. Screening labs today are most significant for a mild leukocytosis with white count of 13,000. She is also mildly hypokalemic with a potassium of 2.8. She was repleted with 40 of potassium both IV and orally here in the ER. On presentation she was given a liter of IV fluids as well as some Inapsine which mostly improved the dry heaving though she was then sleepy and lethargic. We trialed her to sips of clear liquids but she began to vomit therefore some Zofran was given. She is no longer vomiting but continued to feel nauseated. I then administered 10 mg of Reglan. Clinically she appears well and does not meet any criteria for admission. However this recurrent cyclic vomiting would benefit from referral to a corn sheller neurologist as she has been advised previously. Given a negative urine drug screen this is less likely to be cannabinoid induced. Patient will be started on amitriptyline 25 mg nightly for cyclic syndrome. On repeat evaluation patient is reporting that she is still nauseated but she is no longer vomiting. However she is quite sleepy after receiving the Inapsine. She will be signed out to my nighttime colleague Dr. Galaviz. Assuming she maintains continued stability and does not have any further episodes of vomiting she will be discharged home. I have verbally discussed this plan with the patient and she is in agreement Departure - Departure Clinical Impression: Cyclic vomiting syndrome, Hypokalemia due to excessive gastrointestinal loss of potassium Condition: Stable Record reviewed to determine appropriate education?: Yes Prescriptions: Amitriptyline [Elavil] 25 mg PO HS #30 tablet Comments: You are seen today in the emergency department for uncontrolled nausea and vomiting. It is not clear what the cause of your cyclic vomiting syndrome is, however you would benefit from being seen by a corn sheller for longer- term evaluation of this disorder and for further testing that may help determine the cause. Today I would like to address your vomiting syndrome by having you begin taking a medication called amitriptyline. This is a medication that is often used to help with depression and anxiety, however for you it can be very effective at managing this syndrome. You should take it once a day at nighttime only. It is okay to continue to use your other antiemetics especially during the daytime. Today the CT scan of your abdomen did not show any obvious cause for your vomiting. Your labs do show some mild electrolyte changes consistent with vomiting, namely a mildly low potassium. We did replace your potassium while here in the emergency department If you find that your symptoms or not better, you develop any fevers or have a suddenly severe or different belly pain then you should return to the ER.
[2022-04-29 18:29] LABS: MUDS CUTOFF CONCENTRATIONS CUTOFF CONC BELOW:
[2022-04-29 18:36] LABS: BILIRUBIN,URINE NEGATIVE (NEGATIVE); GLUCOSE, URINE (UA) NEGATIVE (NEGATIVE); KETONES,URINE (UA) 40 mg/dL (NEGATIVE); LEUKOCYTE ESTERASE, URINE NEGATIVE (NEGATIVE); NITRITE,URINE NEGATIVE (NEGATIVE); OCCULT BLOOD,URINE NEGATIVE (NEGATIVE); PH,URINE 8.5 PH (5.0-7.5); PROTEIN,URINE NEGATIVE (NEGATIVE); UROBILINOGEN,URINE 0.2 (NORMAL) E.U./dL (NORMAL)
[2022-04-29 18:40] LABS: CLARITY,URINE CLEAR (CLEAR); HCG UR QUAL NEGATIVE
[2022-04-29 18:45] LABS: AMPHETAMINE SCREEN,URINE NEGATIVE (NEGATIVE); BARBITURATE SCREEN,UR NEGATIVE (NEGATIVE); BENZODIAZEPINES SCREEN, URINE NEGATIVE (NEGATIVE); COCAINE SCREEN URINE NEGATIVE (NEGATIVE); METHADONE SCREEN, URINE NEGATIVE (NEGATIVE); METHAMPHETAMINES SCREEN, URINE NEGATIVE (NEGATIVE); OPIATE SCREEN, URINE NEGATIVE (NEGATIVE); OXYCODONE SCREEN, URINE NEGATIVE (NEGATIVE); PROPOXYPHENE SCREEN, URINE NEGATIVE (NEGATIVE); THC CANNABINOID SCREEN, URINE NEGATIVE (NEGATIVE); TRICYCLIC ANTIDEPRESSANT,URINE NEGATIVE (NEGATIVE)
[2022-04-29 18:54] LABS: BASOPHILS % (AUTO) 0.2 %; EOSINOPHILS % (AUTO) 0.1 %; HCT - HEMATOCRIT 39.1 % (37.0-47.0); HGB - HEMOGLOBIN 13.7 g/dL (12.0-16.0); LYMPHOCYTES # (AUTO) 1.2 10^3/uL (1.5-3.5); LYMPHOCYTES % (AUTO) 8.7 %; MEAN CORPUSCULAR HEMOGLOBIN 32.3 pg (27.0-31.0); MEAN CORPUSCULAR VOLUME 92.2 fL (81.0-99.0); MEAN PLATELET VOLUME 10.9 fL (7.9-10.8); MONOCYTES # (AUTO) 0.4 10^3/uL (0.0-1.0); MONOCYTES % (AUTO) 2.6 %; NEUTROPHILS # (AUTO) 11.8 10^3/uL (1.5-6.6); PLT - PLATELET COUNT 215 10^3/uL (130-450); RED BLOOD COUNT 4.24 10^6/uL (4.20-5.40); RED CELL DISTRIBUTION WIDTH 11.9 % (12.0-15.0); WHITE BLOOD COUNT 13.4 x10^3/uL (4.8-10.8)
[2022-04-29 19:05] LABS: ALBUMIN 4.7 g/dL (3.2-5.5); ALBUMIN/GLOBULIN RATIO 1.4 (1.0-2.2); BILIRUBIN,TOTAL 0.7 mg/dL (0.2-1.0); CALCIUM 9.3 mg/dL (8.5-10.3); CREATININE 0.9 mg/dL (0.4-1.0); POTASSIUM 2.8 mmol/L (3.5-5.0)
[2022-04-29] MEDS ORDERED: POTASSIUM CHLOR 10 MEQ/100 ML 10 MEQ/100 ML BAG IV STA ×2 (19:08→21:25)
[2022-04-29] MEDS ORDERED: POTASSIUM CHLORIDE 20 MEQ TABLET PO STA (19:09)
--- NOTE | 2022-04-29 19:35 | CT Report ---
PROCEDURE: Abdomen/Pelvis WO INDICATIONS: n/v TECHNIQUE: Noncontrast 5 mm thick sections acquired from the diaphragms to the symphysis. 5 mm coronal and sagi ttal reformats were then performed. For radiation dose reduction, the following was used: automated exposure control, adjustment of mA and/or kV according to patient size. COMPARISON: 10/04/2021. FINDINGS: Image quality: Excellent. ABDOMEN: Lung bases: Lung bases are clear. Heart size is normal. Solid organs: Liver and spleen are normal in size. Gallbladder is within normal limits Pancreas is normal in contours. No adrenal nodules. Kidneys are normal in size, without hydronephrosis or neph rolithiasis. Peritoneum and bowel: Unenhanced bowel loops demonstrate normal wall thickness and caliber. No free fluid or air. Mild fecal stasis throughout the colon is seen. Appendix is visualized and is within normal limits. Nodes and vessels: No retroperitoneal or mesenteric adenopathy by size criteria. Aorta and inferior vena cava are normal in caliber. Miscellaneous: No ventral hernias. PELVIS: Genitourinary: Bladder wall thickness is normal. Miscellaneous: No inguinal hernias or adenopathy. Intrauterine device is noted within central endom etrium. No gross abnormality is seen in bilateral ovaries. Physiologic amount of fluid is seen in low er pelvis. Bones: No suspicious bony lesions. No vertebral body compression fractures. IMPRESSION: 1. Normal appendix. No bowel obstruction. No free fluid or free air. No abnormal bowel wall thickenin g. Mild constipation. 2. Physiologic amount of fluid seen in lower pelvis. IUD in place. Reviewed by: Jakob Hunt MD on 04/29/2022 7:34 PM PDT Approved by: Jakob Hunt MD on 04/29/2022 7:34 PM PDT Station ID: [id number]
[2022-04-29] MEDS ORDERED: ONDANSETRON 4 MG/2 ML VIAL IVP STA (19:37)
[2022-04-29] MEDS ORDERED: METOCLOPRAMIDE 10 MG/2 ML VIAL IVP STA (20:42)
[2022-04-30 00:14] VITALS: BP 124/68
--- NOTE | 2022-05-01 23:22 | ED Physician Documentation ---
ED Addendum - Addendum Addendum: 05/01/22 23:20 Patient was evaluated and treated by CARLA Méndez and discharge instructions printed, but care of patient turned over to me because at end of CARLA Stacy shift, patient was too drowsy / somnolent to be discharged. Please see CARLA Stacy note for detailed H+P as well as discharge plan. Patient slept for a few hours during my shift , gradually became awake and alert enough for discharge. She denies residual n/v and is comfortable with (and requesting) discharge home.
== END 2022-04-30 00:12 | disposition home or self-care (01) ==
LOC: ED 17:44
DX: R11.15 Cyclical vomiting syndrome unrelated to migraine (principal); E87.6 Hypokalemia
CPT/HCPCS: 36415; 74176; 80053; 80306; 81003; 81025; 83690; 85025; 96365; 96366; 96375; 99283; 99285; A9270; J2765; 81001; 87086

== ENCOUNTER 2022-05-23 00:22 | Emergency (ER) | payer OTHER ==
[2022-05-23] MEDS ORDERED: SODIUM CHLORIDE 0.9% 1,000 ML IV STA (00:50)
[2022-05-23] MEDS ORDERED: ONDANSETRON 4 MG/2 ML VIAL IVP STA (00:50)
[2022-05-23] MEDS ORDERED: MORPHINE 2 MG/ML CARPUJECT IVP STA (00:50)
[2022-05-23 01:00] LABS: BASOPHILS % (AUTO) 0.1 %; EOSINOPHILS % (AUTO) 0.1 %; HCT - HEMATOCRIT 39.8 % (37.0-47.0); HGB - HEMOGLOBIN 13.8 g/dL (12.0-16.0); LYMPHOCYTES # (AUTO) 1.6 10^3/uL (1.5-3.5); LYMPHOCYTES % (AUTO) 11.8 %; MEAN CORPUSCULAR HEMOGLOBIN 31.8 pg (27.0-31.0); MEAN CORPUSCULAR HGB CONC 34.7 g/dL (32.0-36.0); MEAN CORPUSCULAR VOLUME 91.7 fL (81.0-99.0); MEAN PLATELET VOLUME 11.2 fL (7.9-10.8); MONOCYTES # (AUTO) 0.3 10^3/uL (0.0-1.0); MONOCYTES % (AUTO) 2.5 %; NEUTROPHILS # (AUTO) 11.5 10^3/uL (1.5-6.6); NEUTROPHILS % (AUTO) 85.3 %; PLT - PLATELET COUNT 261 10^3/uL (130-450); RED BLOOD COUNT 4.34 10^6/uL (4.20-5.40); RED CELL DISTRIBUTION WIDTH 12.1 % (12.0-15.0); WHITE BLOOD COUNT 13.5 x10^3/uL (4.8-10.8)
[2022-05-23 01:11] LABS: ALBUMIN 4.8 g/dL (3.2-5.5); ALBUMIN/GLOBULIN RATIO 1.5 (1.0-2.2); BILIRUBIN,TOTAL 0.9 mg/dL (0.2-1.0); CALCIUM 9.9 mg/dL (8.5-10.3); CREATININE 0.9 mg/dL (0.4-1.0); POTASSIUM 3.4 mmol/L (3.5-5.0); TOTAL PROTEIN 7.9 g/dL (6.7-8.2)
--- NOTE | 2022-05-23 01:14 | ED Physician Documentation ---
PD HPI NVD - Stated complaint Stated Complaint: N/V - Chief complaint Chief Complaint: Abd Pain - History obtained from History obtained from: Patient - History of Present Illness Timing - onset: How many hours ago (5) Timing - details: Abrupt onset Pain level now: 8 Associated symptoms: Abdominal pain. No: Fever, Hematemesis, Melena Similar symptoms before: No diagnosis - Additonal information Additional information: c/o generalized abdominal pain, nausea and vomiting, sudden onset approximately five hours [employer]. she has had many previous episodes and this is her eighth [facility] ED visit over past year for these symptoms. She had GI appointment scheduled for next month. 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 No cause of symptoms has been determined on previous visits Review of Systems Constitutional: reports: Reviewed and negative Cardiac: reports: Reviewed and negative Respiratory: reports: Reviewed and negative GI: reports: Abdominal Pain, Nausea, Vomiting. 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 : None HEENT: None Psych: None Musculoskeletal: None Derm: None - Past Surgical History Past Surgical History: No - Present Medications Home Medications: Ambulatory Orders Medication Instructions Recorded Confirmed Prochlorperazine Maleate 10 mg PO Q4HR PRN #14 tab 12/29/21 [Compazine] Sertraline [Zoloft] 50 mg PO DAILY 12/29/21 12/29/21 Amitriptyline [Elavil] 25 mg PO HS #30 tablet 04/29/22 Promethazine [Phenergan] 25 mg PO Q6H PRN #10 tab 05/23/22 haloperidoL [Haloperidol] 5 mg PO BID PRN #14 tablet 05/24/22 - Allergies Allergies/Adverse Reactions: Allergies Allergy/AdvReac Type Severity Reaction Status Date / Time No Known Drug Allergies Allergy Verified 05/24/22 01:03 - Social History Does the pt smoke?: No Smoking Status: Never smoker Does the pt drink ETOH?: No Does the pt have substance abuse?: No - Immunizations Immunizations are current?: Yes PD ED PE NORMAL - Vitals Vital signs reviewed: Yes - General General: Alert and oriented X 3, Well developed/nourished, Other (curled up on stretcher lying on her side. poor eye contact, mostly defers to s.o. for answers to my questions) - HEENT HEENT: Moist mucous membranes - Cardiac Cardiac: RRR, No murmur - Respiratory Respiratory: No respiratory distress, Clear bilaterally - Abdomen Abdomen: Normal bowel sounds, Soft, Non tender, Non distended - Derm Derm: Normal color, Warm and dry Results - Vitals Vitals: Oxygen O2 Source Room air - Labs Labs: Laboratory Tests 05/23/22 05/23/22 00:40 00:40 WBC 13.5 H RBC 4.34 Hgb 13.8 Hct 39.8 MCV 91.7 MCH 31.8 H MCHC 34.7 RDW 12.1 Plt Count 261 MPV 11.2 H Neut # (Auto) 11.5 H Lymph # (Auto) 1.6 [place] # (Auto) 0.3 Eos # (Auto) 0.0 Baso # (Auto) 0.0 Absolute Nucleated RBC 0.00 Nucleated RBC % 0.0 Sodium 134 L Potassium 3.4 L Chloride 100 L Carbon Dioxide 23 Anion Gap 11.0 BUN 10 Creatinine 0.9 Estimated GFR (MDRD) 77 L Glucose 115 H Calcium 9.9 Total Bilirubin 0.9 AST 20 ALT 14 Alkaline Phosphatase 71 Total Protein 7.9 Albumin 4.8 Globulin 3.1 Albumin/Globulin Ratio 1.5 Lipase 32 PD MEDICAL DECISION MAKING - ED course Complexity details: reviewed old records, reviewed results, re-evaluated patient, considered differential, d/w patient ED course: presents with recurrence of abdominal cramping pain with nausea and vomiting. She has h/o similar episodes without diagnosis yet achieved. she is given IV normal saline, zofran, droperidol, and morphine. No remarkable findings on blood tests; mild leukocytosis (13.3 wbc), minimal hyponatremia and hypokalemia (134, 3.4 respectively). On reevaluation she is asleep, easily awakens to verbal, reports symptom resolution. Results reviewed with patient, rx for phenergan provided. Departure - Departure Disposition: 01 Home, Self Care Clinical Impression: Vomiting Qualifiers: Vomiting type: unspecified Nausea presence: with nausea Qualified Code(s): R11.2 - Nausea with vomiting, unspecified Abdominal pain Qualifiers: Abdominal location: generalized Qualified Code(s): R10.84 - Generalized abdominal pain Condition: Good Instructions: ED Abdominal Pain Female Non-Specific Abdominal Pain, ED Nausea Vomiting Prescriptions: Promethazine [Phenergan] 25 mg PO Q6H PRN #10 tab PRN Reason: Nausea / Vomiting Comments: There are no concerning nor diagnostic findings on tonight's tests; the cause of your symptoms is not apparent at this time. Discharge Date/Time: 05/23/22 05:24
[2022-05-23] MEDS ORDERED: DROPERIDOL 5 MG/2 ML VIAL IVP STA (01:51)
[2022-05-23 04:02] VITALS: BP 110/77
== END 2022-05-23 05:24 | disposition home or self-care (01) ==
LOC: ED 00:22
DX: R10.84 Generalized abdominal pain (principal); R11.2 Nausea with vomiting, unspecified
CPT/HCPCS: 36415; 80053; 83690; 85025; 96374; 96375; 99284

== ENCOUNTER 2022-09-08 08:19 | Emergency (ER) | payer OTHER ==
[2022-09-08 08:59] LABS: RAPID STREP SCREEN Negative (Negative)
[2022-09-08] MEDS ORDERED: DEXAMETHASONE 10 MG/ML VIAL IV STA (09:00)
[2022-09-08] MEDS ORDERED: SODIUM CHLORIDE 0.9% 1,000 ML IV STA (09:00)
[2022-09-08] MEDS ORDERED: ONDANSETRON 4 MG/2 ML VIAL IVP STA (09:01)
[2022-09-08] MEDS ORDERED: KETOROLAC 30 MG/ML VIAL IVP STA (09:01)
[2022-09-08] MEDS ORDERED: HYDROmorphone 0.5 MG/0.5 ML SYRINGE IVP STA (09:01)
--- NOTE | 2022-09-08 09:10 | ED Physician Documentation ---
PD HPI HEENT - Stated complaint Stated Complaint: THROAT PX/FEVER - Chief complaint Chief Complaint: Heent - History obtained from History obtained from: Patient - Additional information Additional information: The patient comes to the emergency department chief complaint of very sore throat and body aches. The patient was diagnosed with strep pharyngitis 2 days ago and started amoxicillin at that time. She has been taking that and ibuprofen and states her throat is so sore it is hard to swallow. She is also had a feeling of fever and chills. She reports myalgias that have been going on since she first got sick 4 days ago. No abdominal pain. Mild nausea. She has not had any upper respiratory symptoms otherwise. She states she has not been able to drink very much fluid because it hurts so much to swallow, though she has been trying to drink hot tea when she can. No other complaints at this time. She states she has been able to swallow her pills. Review of Systems Ten Systems: 10 systems reviewed and negative Constitutional: reports: Fever, Chills, Myalgias Eyes: reports: Reviewed and negative Ears: reports: Reviewed and negative Nose: reports: Reviewed and negative Throat: reports: Sore throat Cardiac: reports: Reviewed and negative Respiratory: reports: Reviewed and negative GI: reports: Nausea. 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 : None HEENT: None Psych: None Musculoskeletal: None Derm: None - Past Surgical History Past Surgical History: No - Present Medications Home Medications: Ambulatory Orders Medication Instructions Recorded Confirmed Prochlorperazine Maleate 10 mg PO Q4HR PRN #14 tab 12/29/21 [Compazine] Sertraline [Zoloft] 50 mg PO DAILY 12/29/21 12/29/21 Amitriptyline [Elavil] 25 mg PO HS #30 tablet 04/29/22 Promethazine [Phenergan] 25 mg PO Q6H PRN #10 tab 05/23/22 haloperidoL [Haloperidol] 5 mg PO BID PRN #14 tablet 05/24/22 HYDROcod/ACETAM 5/325 [[place] 5/325] 1 - 2 tablet PO Q6H PRN #14 tablet 09/08/22 predniSONE [Deltasone] 60 mg PO DAILY 5 Days #15 tablet 09/08/22 - Allergies Allergies/Adverse Reactions: Allergies Allergy/AdvReac Type Severity Reaction Status Date / Time No Known Drug Allergies Allergy Verified 05/24/22 01:03 - Social History Does the pt smoke?: No Smoking Status: Never smoker Does the pt drink ETOH?: No Does the pt have substance abuse?: No - Immunizations Immunizations are current?: Yes PD ED PE NORMAL - Vitals Vital signs reviewed: Yes - General General: Alert and oriented X 3, No acute distress, Well developed/nourished, Other (The patient appears moderately uncomfortable.) - HEENT HEENT: Atraumatic, PERRL, EOMI, Moist mucous membranes, Other (4+ tonsils bilaterally, symmetrical, beefy red with mild edema and copious exudates. Patient is managing oral secretions. Mild vocal muffling.) - Neck Neck: Supple, no meningeal sign - Cardiac Cardiac: No murmur, Other (Tachycardic rate regular rhythm no murmurs) - Respiratory Respiratory: No respiratory distress, Clear bilaterally - Abdomen Abdomen: Soft, Non tender, Non distended - Derm Derm: Normal color, Warm and dry, No rash - Extremities Extremities: No deformity - Neuro Neuro: Alert and oriented X 3 - Psych Psych: Normal mood, Normal affect Results - Vitals Vitals: Vital Signs - 24 hr 09/08/22 09/08/22 09/08/22 08:29 10:00 11:43 Temperature 37.9 C Heart Rate 122 H 100 101 H Respiratory 19 18 18 Rate Blood Pressure 112/63 104/56 L 103/57 L O2 Saturation 98 96 98 Oxygen O2 Source Room air - Labs Labs: Laboratory Tests 09/08/22 08:25 Group A Strep Rapid Negative PD MEDICAL DECISION MAKING - ED course Complexity details: reviewed results, re-evaluated patient, considered differential, d/w patient ED course: The patient was treated symptomatically with IV fluids, Decadron, Toradol, Zofran and Dilaudid. The patient was feeling much better on reevaluation and felt she was stable for discharge home. We have discussed symptomatic management at home, as well as the usual indications for return. Patient is advised to continue taking her antibiotics, as directed, until the course is complete. Departure - Departure Disposition: 01 Home, Self Care Clinical Impression: Tonsillitis Condition: Stable Instructions: ED Strep Pharyngitis Conf Prescriptions: predniSONE [Deltasone] 60 mg PO DAILY 5 Days #15 tablet HYDROcod/ACETAM 5/325 [[place] 5/325] 1 - 2 tablet PO Q6H PRN #14 tablet PRN Reason: Pain Comments: Your prescriptions for medication of been electronically transmitted to the [facility] pharmacy in [place], your pharmacy of choice on record. Please be sure to drink plenty of fluids. You should start to feel noticeably better in the next few days. You have been given sedating medication in the emergency department today, and should not drive for the next 6 hours. Please follow-up with your primary care physician as needed. Discharge Date/Time: 09/08/22 11:44
[2022-09-08 11:44] VITALS: BP 103/57
== END 2022-09-08 11:44 | disposition home or self-care (01) ==
LOC: ED 08:19
DX: J03.90 Acute tonsillitis, unspecified (principal)
CPT/HCPCS: 87070; 87430; 96361; 96374; 96375; 99282; 99284; J1170

== ENCOUNTER 2022-11-04 08:48 | Emergency (ER) | payer OTHER ==
[2022-11-04 11:33] LABS: BASOPHILS % (AUTO) 0.2 %; EOSINOPHILS # (AUTO) 0.1 10^3/uL (0.0-0.7); EOSINOPHILS % (AUTO) 0.9 %; HCT - HEMATOCRIT 35.5 % (37.0-47.0); HGB - HEMOGLOBIN 11.8 g/dL (12.0-16.0); LYMPHOCYTES # (AUTO) 1.9 10^3/uL (1.5-3.5); LYMPHOCYTES % (AUTO) 23.3 %; MEAN CORPUSCULAR HEMOGLOBIN 32.2 pg (27.0-31.0); MEAN CORPUSCULAR HGB CONC 33.2 g/dL (32.0-36.0); MEAN PLATELET VOLUME 10.5 fL (7.9-10.8); MONOCYTES # (AUTO) 0.5 10^3/uL (0.0-1.0); MONOCYTES % (AUTO) 5.9 %; NEUTROPHILS # (AUTO) 5.6 10^3/uL (1.5-6.6); NEUTROPHILS % (AUTO) 69.3 %; PLT - PLATELET COUNT 198 10^3/uL (130-450); RED BLOOD COUNT 3.66 10^6/uL (4.20-5.40); RED CELL DISTRIBUTION WIDTH 12.5 % (12.0-15.0)
--- NOTE | 2022-11-04 11:41 | ED Physician Documentation ---
History of Present Illness - Stated complaint Stated Complaint: WEAKNESS - Chief complaint Chief Complaint: General - History obtained from History obtained from: Patient - Additonal information Additional information: 27-year-old woman with chronic recurrent vomiting. She is a frequent emergency department visitor for same. She went to a emergency department in [place] 4 days ago for her usual symptoms not associated with fever. For reasons unclear blood cultures were done and she was called and told to return for positive blood cultures. Details unknown. She is feeling fine now. No fevers. She does have some dysuria though. 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 HEENT: None Psych: None Musculoskeletal: None Derm: None - Past Surgical History Past Surgical History: No - Present Medications Home Medications: Ambulatory Orders Medication Instructions Recorded Confirmed Prochlorperazine Maleate 10 mg PO Q4HR PRN #14 tab 12/29/21 [Compazine] Sertraline [Zoloft] 50 mg PO DAILY 12/29/21 12/29/21 Amitriptyline [Elavil] 25 mg PO HS #30 tablet 04/29/22 Promethazine [Phenergan] 25 mg PO Q6H PRN #10 tab 05/23/22 haloperidoL [Haloperidol] 5 mg PO BID PRN #14 tablet 05/24/22 HYDROcod/ACETAM 5/325 [[place] 5/325] 1 - 2 tablet PO Q6H PRN #14 tablet 09/08/22 predniSONE [Deltasone] 60 mg PO DAILY 5 Days #15 tablet 09/08/22 metroNIDAZOLE [Flagyl] 500 mg PO TID 5 Days #15 tablet 11/04/22 - Allergies Allergies/Adverse Reactions: Allergies Allergy/AdvReac Type Severity Reaction Status Date / Time No Known Drug Allergies Allergy Verified 11/04/22 09:05 - Social History Does the pt smoke?: No Smoking Status: Never smoker Does the pt drink ETOH?: No Does the pt have substance abuse?: No - Immunizations Immunizations are current?: Yes PD ED PE NORMAL - Vitals Vital signs reviewed: Yes - General General: Alert and oriented X 3, No acute distress - Abdomen Abdomen: Non tender - Derm Derm: No rash - Neuro Neuro: Alert and oriented X 3, Normal speech Results - Vitals Vitals: Vital Signs - 24 hr 11/04/22 08:59 Temperature 36.9 C Heart Rate 71 Respiratory 16 Rate Blood Pressure 126/81 H O2 Saturation 100 Oxygen O2 Source Room air - Labs Labs: Laboratory Tests 11/04/22 11/04/22 11/04/22 11:25 11:27 11:27 WBC 8.0 RBC 3.66 L Hgb 11.8 L Hct 35.5 L MCV 97.0 MCH 32.2 H MCHC 33.2 RDW 12.5 Plt Count 198 MPV 10.5 Neut # (Auto) 5.6 Lymph # (Auto) 1.9 [place] # (Auto) 0.5 Eos # (Auto) 0.1 Baso # (Auto) 0.0 Absolute Nucleated RBC 0.00 Nucleated RBC % 0.0 Sodium 138 Potassium 4.0 Chloride 104 Carbon Dioxide 29 Anion Gap 5.0 L BUN 10 Creatinine 0.8 Estimated GFR (MDRD) 87 L Glucose 105 H Lactic Acid Calcium 8.8 Total Bilirubin 0.6 AST 13 ALT 11 Alkaline Phosphatase 51 Total Protein 6.6 L Albumin 3.9 Globulin 2.7 Albumin/Globulin Ratio 1.4 Lipase 33 Procalcitonin < 0.05 11/04/22 11:27 WBC RBC Hgb Hct MCV MCH MCHC RDW Plt Count MPV Neut # (Auto) Lymph # (Auto) [place] # (Auto) Eos # (Auto) Baso # (Auto) Absolute Nucleated RBC Nucleated RBC % Sodium Potassium Chloride Carbon Dioxide Anion Gap BUN Creatinine Estimated GFR (MDRD) Glucose Lactic Acid 0.8 Calcium Total Bilirubin AST ALT Alkaline Phosphatase Total Protein Albumin Globulin Albumin/Globulin Ratio Lipase Procalcitonin PD Medical Decision Making - ED course ED course: I was able to speak one of the emergency physicians at [facility] in [place]. She has 1 blood culture positive for Fusobacterium nucleatum and another one that has unspeciated gram-negative rods at this juncture. Subsequently I spoke with Dr. Franco, infectious disease specialist at [facility] and reviewed the above data. She recommends repeating the blood cultures in the interim can be safely discharged on Flagyl 500 mg p.o. 3 times daily with close follow-up. Departure - Departure Disposition: 01 Home, Self Care Clinical Impression: Bacteremia Condition: Good Record reviewed to determine appropriate education?: Yes Instructions: ED Bacteremia Rule Out Prescriptions: metroNIDAZOLE [Flagyl] 500 mg PO TID 5 Days #15 tablet Comments: You were seen today because the hospital in [place] noted bacteria in your blood, the bacteria that grew out of your blood is not a typical contaminant, so I spoke with an infectious disease physician who recommended repeating the blood cultures, and starting you on antibiotics. If the blood cultures are positive here we will call you back but would also like you to return on Monday for reevaluation and recheck regardless of how you are feeling. Return sooner if worse especially if you develop high fever, shaking chills or other new or concerning symptoms.
[2022-11-04 11:45] LABS: ALBUMIN 3.9 g/dL (3.2-5.5); ALBUMIN/GLOBULIN RATIO 1.4 (1.0-2.2); BILIRUBIN,TOTAL 0.6 mg/dL (0.2-1.0); CALCIUM 8.8 mg/dL (8.5-10.3); CREATININE 0.8 mg/dL (0.4-1.0); TOTAL PROTEIN 6.6 g/dL (6.7-8.2)
[2022-11-04] MEDS ORDERED: metroNIDAZOLE 250 MG TABLET PO STA (12:26)
[2022-11-04 12:34] LABS: BILIRUBIN,URINE NEGATIVE (NEGATIVE); GLUCOSE, URINE (UA) NEGATIVE (NEGATIVE); KETONES,URINE (UA) NEGATIVE (NEGATIVE); LEUKOCYTE ESTERASE, URINE NEGATIVE (NEGATIVE); NITRITE,URINE NEGATIVE (NEGATIVE); OCCULT BLOOD,URINE NEGATIVE (NEGATIVE); PH,URINE 7.5 PH (5.0-7.5); PROTEIN,URINE NEGATIVE (NEGATIVE); UROBILINOGEN,URINE 0.2 (NORMAL) E.U./dL (NORMAL)
[2022-11-04 12:40] VITALS: BP 120/64
[2022-11-04 12:42] LABS: CLARITY,URINE CLEAR (CLEAR); HCG UR QUAL NEGATIVE
== END 2022-11-04 12:40 | disposition home or self-care (01) ==
LOC: ED 08:48
DX: R78.81 Bacteremia (principal)
CPT/HCPCS: 36415; 80053; 81003; 81025; 83605; 83690; 84145; 85025; 87040; 99283; A9270; 81001; 87086

== ENCOUNTER 2022-11-06 09:08 | Emergency (ER) | payer OTHER ==
[2022-11-06 09:24] VITALS: BP 123/86
--- NOTE | 2022-11-06 11:05 | ED Physician Documentation ---
History of Present Illness - Stated complaint Stated Complaint: ABNORMAL LABS - Chief complaint Chief Complaint: General - History obtained from History obtained from: Patient - History of Present Illness Timing: How many weeks ago (1) - Additonal information Additional information: 27-year-old female with a history of cyclical vomiting that has been diagnosed as abdominal migraine was in [place] receiving treatment last week when a blood culture became positive. She was asked to come in to see us and the patient followed up here 2 days ago repeat blood cultures were done which were negative she was asked return to the emergency department for reevaluation independent of how she was feeling. She did have some nausea last night she in general feels overall improved and she has not had fever or chills. She did begin taking Flagyl as instructed 2 days ago. Review of Systems Constitutional: reports: Fatigue. denies: Fever, Chills, Myalgias Eyes: denies: Decreased vision Ears: denies: Ear pain Nose: denies: Congestion Throat: denies: Sore throat Cardiac: denies: Chest pain / pressure, Palpitations Respiratory: denies: Dyspnea, Cough, Wheezing GI: reports: Nausea. 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 HEENT: None Psych: None Musculoskeletal: None Derm: None - Past Surgical History Past Surgical History: No - Present Medications Home Medications: Ambulatory Orders Medication Instructions Recorded Confirmed Prochlorperazine Maleate 10 mg PO Q4HR PRN #14 tab 12/29/21 [Compazine] Sertraline [Zoloft] 50 mg PO DAILY 12/29/21 12/29/21 Amitriptyline [Elavil] 25 mg PO HS #30 tablet 04/29/22 Promethazine [Phenergan] 25 mg PO Q6H PRN #10 tab 05/23/22 haloperidoL [Haloperidol] 5 mg PO BID PRN #14 tablet 05/24/22 HYDROcod/ACETAM 5/325 [[place] 5/325] 1 - 2 tablet PO Q6H PRN #14 tablet 09/08/22 predniSONE [Deltasone] 60 mg PO DAILY 5 Days #15 tablet 09/08/22 metroNIDAZOLE [Flagyl] 500 mg PO TID 5 Days #15 tablet 11/04/22 - Allergies Allergies/Adverse Reactions: Allergies Allergy/AdvReac Type Severity Reaction Status Date / Time No Known Drug Allergies Allergy Verified 11/06/22 09:24 - Social History Does the pt smoke?: No Smoking Status: Never smoker Does the pt drink ETOH?: No Does the pt have substance abuse?: No - Immunizations Immunizations are current?: Yes PD ED PE NORMAL - Vitals Vital signs reviewed: Yes (hypertensive ) - General General: Alert and oriented X 3, No acute distress, Well developed/nourished - HEENT HEENT: Atraumatic, PERRL, EOMI - Neck Neck: Supple, no meningeal sign, No bony TTP - Cardiac Cardiac: RRR, No murmur - Respiratory Respiratory: No respiratory distress, Clear bilaterally - Abdomen Abdomen: Soft, Non tender - Back Back: No CVA TTP, No spinal TTP - Derm Derm: Normal color, Warm and dry, No rash - Extremities Extremities: No deformity, No edema - Neuro Neuro: Alert and oriented X 3, signs cleaner 2-12 intact, No motor deficit, No sensory deficit, Normal speech Eye Opening: Spontaneous Motor: Obeys Commands Verbal: Oriented GCS Score: 15 - Psych Psych: Normal mood, Normal affect Results - Vitals Vitals: Vital Signs - 24 hr 11/06/22 09:20 Temperature 36.4 C L Heart Rate 81 Respiratory 16 Rate Blood Pressure 123/86 H O2 Saturation 100 Oxygen O2 Source Room air - Labs Labs: Laboratory Tests 11/06/22 11/06/22 11:08 11:08 WBC 8.5 RBC 3.91 L Hgb 12.3 Hct 37.4 MCV 95.7 MCH 31.5 H MCHC 32.9 RDW 12.4 Plt Count 213 MPV 10.6 Neut # (Auto) 6.3 Lymph # (Auto) 1.8 [place] # (Auto) 0.4 Eos # (Auto) 0.1 Baso # (Auto) 0.0 Absolute Nucleated RBC 0.00 Nucleated RBC % 0.0 Sodium 136 Potassium 3.3 L Chloride 102 Carbon Dioxide 26 Anion Gap 8.0 BUN 9 Creatinine 0.8 Estimated GFR (MDRD) 87 L Glucose 109 H Calcium 9.2 Total Bilirubin 0.5 AST 14 ALT 13 Alkaline Phosphatase 50 Total Protein 7.1 Albumin 4.3 Globulin 2.8 Albumin/Globulin Ratio 1.5 Lipase 32 PD Medical Decision Making - ED course Complexity details: reviewed results, re-evaluated patient, considered differential, d/w patient Reviewed Lab Results: I reviewed the patient's complete blood count and found her white blood cell count to be normal and compared it to a normal value on her last visit. I interpreted this as further evidence that her bacteremia is controlled. her red blood cell counts were normal as well as the indices. I reviewed the patient's electrolytes and blood chemistries and found her to have normal electrolytes normal kidney and liver function. ED course: 27-year-old female was asked to return to the emergency department for reevaluation after having bacteremia last week and beginning outpatient treatment this week. I evaluated the patient at the bedside, examined her and she appears well and she is instructed to continue the course of antibiotic she has to finish. Departure - Departure Disposition: 01 Home, Self Care Clinical Impression: Bacteremia Condition: Stable Instructions: ED Bacteremia Rule Out Follow-Up: TODD Navarro [Provider Group] Comments: Becky, today we did not find any abnormality to your laboratory work and we are fairly confident you will do well with this continue the antibiotic until completed and follow-up with your primary care doctor as needed. We are not expecting worsening of your condition and if this happens this would be a reason to return to see us. Discharge Date/Time: 11/06/22 11:44
[2022-11-06 11:13] LABS: BASOPHILS % (AUTO) 0.2 %; EOSINOPHILS # (AUTO) 0.1 10^3/uL (0.0-0.7); EOSINOPHILS % (AUTO) 0.6 %; HCT - HEMATOCRIT 37.4 % (37.0-47.0); HGB - HEMOGLOBIN 12.3 g/dL (12.0-16.0); LYMPHOCYTES # (AUTO) 1.8 10^3/uL (1.5-3.5); LYMPHOCYTES % (AUTO) 20.7 %; MEAN CORPUSCULAR HEMOGLOBIN 31.5 pg (27.0-31.0); MEAN CORPUSCULAR HGB CONC 32.9 g/dL (32.0-36.0); MEAN CORPUSCULAR VOLUME 95.7 fL (81.0-99.0); MEAN PLATELET VOLUME 10.6 fL (7.9-10.8); MONOCYTES # (AUTO) 0.4 10^3/uL (0.0-1.0); MONOCYTES % (AUTO) 4.2 %; NEUTROPHILS # (AUTO) 6.3 10^3/uL (1.5-6.6); NEUTROPHILS % (AUTO) 74.1 %; PLT - PLATELET COUNT 213 10^3/uL (130-450); RED BLOOD COUNT 3.91 10^6/uL (4.20-5.40); RED CELL DISTRIBUTION WIDTH 12.4 % (12.0-15.0); WHITE BLOOD COUNT 8.5 x10^3/uL (4.8-10.8)
[2022-11-06 11:32] LABS: ALBUMIN 4.3 g/dL (3.2-5.5); ALBUMIN/GLOBULIN RATIO 1.5 (1.0-2.2); BILIRUBIN,TOTAL 0.5 mg/dL (0.2-1.0); CALCIUM 9.2 mg/dL (8.5-10.3); CREATININE 0.8 mg/dL (0.4-1.0); POTASSIUM 3.3 mmol/L (3.5-5.0); TOTAL PROTEIN 7.1 g/dL (6.7-8.2)
== END 2022-11-06 11:44 | disposition home or self-care (01) ==
LOC: ED 09:08
DX: R78.81 Bacteremia (principal)
CPT/HCPCS: 36415; 80053; 83690; 85025; 99281; 99283

== ENCOUNTER 2023-12-29 12:26 | Outpatient (CLI) | payer OTHER ==
--- NOTE | 2023-12-30 08:20 | XRAY Report ---
PROCEDURE: Chest 2V INDICATIONS: BRONCHITIS TECHNIQUE: 2 views of the chest were acquired. COMPARISON: None. FINDINGS: Surgical changes and devices: None. Lungs and pleura: No pleural effusions or pneumothorax. Lungs are clear. Mediastinum: Mediastinal contours appear normal. Heart size is normal. Bones and chest wall: No suspicious bony lesions. Overlying soft tissues appear unremarkable. IMPRESSION: No acute cardiopulmonary process. Reviewed by: Ge Grant MD on 12/30/2023 8:18 AM [facility] Approved by: Ge Grant MD on 12/30/2023 8:18 AM [facility] Station ID: [id number]
== END 2023-12-29 12:27 | disposition home or self-care (01) ==
LOC: DI 12:26
PROVIDERS: ATTEND Physician Assistant Medical
DX: J40 Bronchitis, not specified as acute or chronic (principal)

== ENCOUNTER 2024-01-27 19:47 | Emergency (ER) | payer OTHER ==
[2024-01-27] MEDS: SODIUM CHLORIDE 0.9% 1,000 ML IV STA (20:10)
[2024-01-27 20:11] LABS: BASOPHILS # (AUTO) 0.1 10^3/uL (0.0-0.1); BASOPHILS % (AUTO) 0.4 %; EOSINOPHILS # (AUTO) 0.2 10^3/uL (0.0-0.7); EOSINOPHILS % (AUTO) 1.4 %; HCT - HEMATOCRIT 41.5 % (37.0-47.0); HGB - HEMOGLOBIN 14.2 g/dL (12.0-16.0); LYMPHOCYTES # (AUTO) 2.6 10^3/uL (1.5-3.5); MEAN CORPUSCULAR HEMOGLOBIN 32.2 pg (27.0-31.0); MEAN CORPUSCULAR HGB CONC 34.2 g/dL (32.0-36.0); MEAN CORPUSCULAR VOLUME 94.1 fL (81.0-99.0); MEAN PLATELET VOLUME 10.5 fL (7.9-10.8); MONOCYTES # (AUTO) 0.7 10^3/uL (0.0-1.0); MONOCYTES % (AUTO) 4.7 %; NEUTROPHILS # (AUTO) 10.3 10^3/uL (1.5-6.6); NEUTROPHILS % (AUTO) 74.3 %; PLT - PLATELET COUNT 295 10^3/uL (130-450); RED BLOOD COUNT 4.41 10^6/uL (4.20-5.40); RED CELL DISTRIBUTION WIDTH 11.6 % (12.0-15.0); WHITE BLOOD COUNT 13.9 x10^3/uL (4.8-10.8)
[2024-01-27 20:13] LABS: BILIRUBIN,URINE NEGATIVE (NEGATIVE); GLUCOSE, URINE (UA) NEGATIVE (NEGATIVE); KETONES,URINE (UA) NEGATIVE (NEGATIVE); LEUKOCYTE ESTERASE, URINE NEGATIVE (NEGATIVE); NITRITE,URINE NEGATIVE (NEGATIVE); OCCULT BLOOD,URINE NEGATIVE (NEGATIVE); PH,URINE 8.5 PH (5.0-7.5); PROTEIN,URINE NEGATIVE (NEGATIVE); UROBILINOGEN,URINE 0.2 (NORMAL) E.U./dL (NORMAL)
[2024-01-27 20:14] LABS: CLARITY,URINE CLEAR (CLEAR)
[2024-01-27 20:15] LABS: HCG UR QUAL NEGATIVE
[2024-01-27] MEDS: DROPERIDOL 5 MG/2 ML VIAL IVP STA (20:20)
--- NOTE | 2024-01-27 20:25 | ED Physician Documentation ---
History of Present Illness - Stated complaint Stated Complaint: VOMITING - Chief complaint Chief Complaint: Abd Pain - History obtained from History obtained from: Patient - History of Present Illness Timing: Today Pain level max: 5 Pain level now: 5 - Additonal information Additional information: 28-year-old female presents to the emergency department with nausea and vomiting started today. She states this been ongoing issue for several years. She states she does not smoke or drink. Denies any drug use including marijuana. Denies any possibility of . Nothing makes this better or worse. Patient states that she has had a GI workup performed with colonoscopy in the past. Has not seen GI recently. Currently does not have any nausea medications at home. No blood in the vomit. No blood in the stool. No recent antibiotics. No recent travel. No fevers. No chills. Review of Systems Constitutional: denies: Fever, Chills Respiratory: denies: Cough GI: reports: Nausea, Vomiting. 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 : None HEENT: None Psych: None Musculoskeletal: None Derm: None Other Past Medical History: Cyclical Vomiting syndrome - Past Surgical History Past Surgical History: No - Present Medications Home Medications: Ambulatory Orders Medication Instructions Recorded Confirmed Cream For Her Skin 01/27/24 Ondansetron Odt [Zofran] 4 mg TL Q6H PRN #20 tablet 01/27/24 Promethazine [Phenergan] 25 mg PO Q6H PRN #10 tab 01/27/24 - Allergies Allergies/Adverse Reactions: Allergies Allergy/AdvReac Type Severity Reaction Status Date / Time No Known Drug Allergies Allergy Verified 01/27/24 19:59 - Social History Does the pt smoke?: No Smoking Status: Never smoker Does the pt drink ETOH?: No Does the pt have substance abuse?: No - Immunizations Immunizations are current?: Yes - POLST Patient has POLST: No PD ED PE NORMAL - Vitals Vital signs reviewed: Yes - General General: Alert and oriented X 3, No acute distress - HEENT HEENT: PERRL, Moist mucous membranes - Neck Neck: Supple, no meningeal sign - Cardiac Cardiac: RRR, Strong equal pulses - Respiratory Respiratory: No respiratory distress, Clear bilaterally - Abdomen Abdomen: Soft, Non tender, Non distended - Back Back: No CVA TTP, No spinal TTP - Derm Derm: Warm and dry - Extremities Extremities: No edema, No calf tenderness / cord - Neuro Neuro: Alert and oriented X 3 - Psych Psych: Normal mood, Normal affect Results - Vitals Vitals: Vital Signs - 24 hr 01/27/24 01/27/24 01/27/24 19:50 20:41 22:00 Temperature 36.3 C L Heart Rate 73 70 83 Respiratory 20 16 17 Rate Blood Pressure 137/87 H 134/92 H 123/87 H O2 Saturation 100 98 98 Oxygen O2 Source Room air - Labs Labs: Laboratory Tests 01/27/24 01/27/24 01/27/24 20:06 20:06 20:06 WBC RBC Hgb Hct MCV MCH MCHC RDW Plt Count MPV Neut # (Auto) Lymph # (Auto) [place] # (Auto) Eos # (Auto) Baso # (Auto) Absolute Nucleated RBC Nucleated RBC % Sodium Potassium Chloride Carbon Dioxide Anion Gap BUN Creatinine Estimated GFR (MDRD) Glucose Calcium Total Bilirubin AST ALT Alkaline Phosphatase Total Protein Albumin Globulin Albumin/Globulin Ratio Lipase Urine Color YELLOW Urine Clarity CLEAR Urine pH 8.5 H Ur Specific [place] 1.020 Urine Protein NEGATIVE Urine Glucose (UA) NEGATIVE Urine Ketones NEGATIVE Urine Occult Blood NEGATIVE Urine Nitrite NEGATIVE Urine Bilirubin NEGATIVE Urine Urobilinogen 0.2 (NORMAL) Ur Leukocyte Esterase NEGATIVE Ur Microscopic Review NOT INDICATED Urine Culture Comments NOT INDICATED Urine HCG, Qual NEGATIVE Urine Opiates Screen NEGATIVE Ur Buprenorphine Scrn NEGATIVE Ur Oxycodone Screen NEGATIVE Urine Methadone Screen NEGATIVE Ur Barbiturates Screen NEGATIVE Ur Tricyclics Screen NEGATIVE Ur Phencyclidine Scrn NEGATIVE Ur Amphetamine Screen NEGATIVE U Methamphetamines Scrn NEGATIVE U Benzodiazepines Scrn NEGATIVE Urine Cocaine Screen NEGATIVE U Cannabinoids Screen NEGATIVE Ur Drug Screen Comment CUTOFF CONC BELOW: 01/27/24 01/27/24 20:07 20:07 WBC 13.9 H RBC 4.41 Hgb 14.2 Hct 41.5 MCV 94.1 MCH 32.2 H MCHC 34.2 RDW 11.6 L Plt Count 295 MPV 10.5 Neut # (Auto) 10.3 H Lymph # (Auto) 2.6 [place] # (Auto) 0.7 Eos # (Auto) 0.2 Baso # (Auto) 0.1 Absolute Nucleated RBC 0.00 Nucleated RBC % 0.0 Sodium 138 Potassium 3.8 Chloride 104 Carbon Dioxide 25 Anion Gap 9.0 BUN 12 Creatinine 0.9 Estimated GFR (MDRD) 76 L Glucose 104 Calcium 10.0 Total Bilirubin 0.4 AST 16 ALT 14 Alkaline Phosphatase 77 Total Protein 7.6 Albumin 4.6 Globulin 3.0 Albumin/Globulin Ratio 1.5 Lipase 22 Urine Color Urine Clarity Urine pH Ur Specific [place] Urine Protein Urine Glucose (UA) Urine Ketones Urine Occult Blood Urine Nitrite Urine Bilirubin Urine Urobilinogen Ur Leukocyte Esterase Ur Microscopic Review Urine Culture Comments Urine HCG, Qual Urine Opiates Screen Ur Buprenorphine Scrn Ur Oxycodone Screen Urine Methadone Screen Ur Barbiturates Screen Ur Tricyclics Screen Ur Phencyclidine Scrn Ur Amphetamine Screen U Methamphetamines Scrn U Benzodiazepines Scrn Urine Cocaine Screen U Cannabinoids Screen Ur Drug Screen Comment PD Medical Decision Making - ED course Complexity details: reviewed results, re-evaluated patient, considered differential, d/w patient ED course: Patient was given IV fluids, IV droperidol and IV morphine in the emergency department. She fell asleep and slept in the emergency department. Abdominal pain resolved. Nausea and vomiting resolved. Tolerating p.o. without di fficulty. The patient is requesting Zofran and Phenergan to have at home. These will be prescribed for her. Offered the patient to stay longer in the emergency department for further observation, she declines this and request to go home. Will have her follow-up with her doctor for further care. Patient is very well-appearing, nontoxic. Afebrile. Patient counseled regarding signs and symptoms for which I believe and urgent re-evaluation would be necessary. Patient with good understanding of and agreement to plan and is comfortable going home at this time This document was made in part using voice recognition software. While efforts are made to proofread this document, sound alike and grammatical errors may occur. Departure - Departure Disposition: 01 Home, Self Care Clinical Impression: Vomiting Qualifiers: Vomiting type: unspecified Nausea presence: with nausea Qualified Code(s): R11.2 - Nausea with vomiting, unspecified Condition: Good Instructions: ED Nausea Vomiting Follow-Up: your,doctor in 1 week [Other] Prescriptions: Promethazine [Phenergan] 25 mg PO Q6H PRN #10 tab PRN Reason: Nausea / Vomiting Ondansetron Odt [Zofran] 4 mg TL Q6H PRN #20 tablet PRN Reason: Nausea / Vomiting Comments: Your prescriptions were sent to [facility] in [place]. Please follow-up with your doctor for further care. Please return if you worsen. Make sure you are drinking plenty of fluids at home. Your doctor may want to refer you back to gastroenterology for further workup. Forms: PCP List Discharge Date/Time: 01/27/24 22:03
[2024-01-27 20:36] LABS: ALBUMIN 4.6 g/dL (3.2-5.5); ALBUMIN/GLOBULIN RATIO 1.5 (1.0-2.2); BILIRUBIN,TOTAL 0.4 mg/dL (0.2-1.0); CREATININE 0.9 mg/dL (0.6-1.3); POTASSIUM 3.8 mmol/L (3.5-4.5); TOTAL PROTEIN 7.6 g/dL (6.4-8.9)
[2024-01-27 20:41] LABS: AMPHETAMINE SCREEN,URINE NEGATIVE (NEGATIVE); BARBITURATE SCREEN,UR NEGATIVE (NEGATIVE); BENZODIAZEPINES SCREEN, URINE NEGATIVE (NEGATIVE); BUPRENORPHINE SCREEN, URINE NEGATIVE (NEGATIVE); COCAINE SCREEN URINE NEGATIVE (NEGATIVE); METHADONE SCREEN, URINE NEGATIVE (NEGATIVE); METHAMPHETAMINES SCREEN, URINE NEGATIVE (NEGATIVE); OPIATE SCREEN, URINE NEGATIVE (NEGATIVE); OXYCODONE SCREEN, URINE NEGATIVE (NEGATIVE); THC CANNABINOID SCREEN, URINE NEGATIVE (NEGATIVE); TRICYCLIC ANTIDEPRESSANT,URINE NEGATIVE (NEGATIVE)
[2024-01-27 20:50] VITALS: O2SAT 98
[2024-01-27] MEDS: MORPHINE 2 MG/ML CARPUJECT IVP STA (21:01)
[2024-01-27 22:04] VITALS: BP 123/87
== END 2024-01-27 22:03 | disposition home or self-care (01) ==
LOC: ED 19:47
DX: R11.2 Nausea with vomiting, unspecified (principal)
CPT/HCPCS: 36415; 80053; 80306; 81001; 81003; 81025; 83690; 85025; 87086; 96374; 96375; 99283